=== PATIENT | male | born 1985 | race Caucasian/White ===

== ENCOUNTER 2021-09-29 00:30 | Emergency (ER) | payer BC ==
[2021-09-29] MEDS ORDERED: SODIUM CHLORIDE 0.9% 1,000 ML IV STA (01:08)
[2021-09-29] MEDS ORDERED: ONDANSETRON 4 MG/2 ML VIAL IVP STA (01:09)
--- NOTE | 2021-09-29 01:19 | ED ---
Abdominal Pain HPI - General Chief Complaint: Abdominal Pain Stated Complaint: Lower Back Pain, Kidney History Time Seen by Provider: 09/29/21 01:08 Source: patient, RN notes reviewed Mode of arrival: ambulatory Limitations: no limitations - History of Present Illness Initial Comments: This is a pleasant 36-year-old male who presents emergent back complaining of low back pain and flank pain was gone out for about 3 or 4 days. Patient states he has had vomiting and diarrhea as well. Patient states that about 4 years ago he had a bout of kidney failure and states that the symptoms feel similar. Patient has no other significant past medical history. He is a daily cigarette smoker. He also drinks about 6 beers per night. Denies any other illicit drug abuse. Patient has had several episodes of vomiting. Possible minimal hematemesis. States he noticed a few reddish/pink flecks in the vomit. Also had watery diarrhea which is actually resolving. Overt abdominal pain. No chest pain. No cough. No numbness or tingling. No vision or hearing disturbance. No headache. No skin rashes or lesions. No penile discharge. No testicular pain. No injuries. No sore throat or earache. No difficulty swallowing. Patient denies taking a prescription or [id number] medications. MD Complaint: abdominal pain, flank pain - Related Data Allergies Allergy/AdvReac Type Severity Reaction Status Date / Time No Known Allergies Allergy Verified 09/29/21 01:18 Review of Systems ROS Statement: Those systems with pertinent positive or pertinent negative responses have been documented in the HPI. ROS Other: All systems not noted in ROS Statement are negative. Past Medical History Additional Past Medical History / Comment(s): Kidney injury History of Any Multi-Drug Resistant Organisms: None Reported Past Surgical History: No Surgical Hx Reported Past Psychological History: No Psychological Hx Reported Smoking Status: Current every day smoker Past Alcohol Use History: Daily General Exam Limitations: no limitations General appearance: alert, in no apparent distress Head exam: Present: atraumatic, normocephalic, normal inspection Eye exam: Present: normal appearance, PERRL, EOMI. Absent: scleral icterus, conjunctival injection, periorbital swelling ENT exam: Present: normal exam, normal oropharynx, mucous membranes dry, mucous membranes moist, TM's normal bilaterally, normal external ear exam Neck exam: Present: normal inspection, full ROM. Absent: tenderness, meningismus, lymphadenopathy Respiratory exam: Present: normal lung sounds bilaterally. Absent: respiratory distress, wheezes, rales, rhonchi, stridor, chest wall tenderness, accessory muscle use Cardiovascular Exam: Present: regular rate, normal rhythm, normal heart sounds. Absent: systolic murmur, diastolic murmur, rubs, gallop, clicks GI/Abdominal exam: Present: soft, normal bowel sounds. Absent: distended, ten derness, guarding, rebound, rigid Speculum exam: Present: vaginal bleeding, other (Chaperoned vaginal bleeding reveals a closed cervix with active bleeding. No clots. No tissue, no cervicitis). Absent: vaginal discharge, foreign body, tissue, laceration Extremities exam: Present: normal inspection, full ROM, normal capillary refill. Absent: tenderness, pedal edema, joint swelling, calf tenderness Back exam: Present: normal inspection, CVA tenderness (R), CVA tenderness (L). Absent: full ROM, tenderness, muscle spasm, paraspinal tenderness, vertebral tenderness Neurological exam: Present: alert, oriented X3, CN II-XII intact Psychiatric exam: Present: normal affect, normal mood Skin exam: Present: warm, dry, intact, normal color. Absent: rash Course Vital Signs 09/29/21 00:43 Pulse Rate 64 Respiratory 16 Rate Blood Pressure 135/87 O2 Sat by Pulse 98 Oximetry - Reevaluation(s) Reevaluation #1: 09/29/21 02:54 Medical record is reviewed Symptoms are improved here in the emergency department Patient is informed of results and questions answered Patient in no distress Medical Decision Making - Medical Decision Making His workup here is essentially negative. Computed tomography scan showed no acute findings. Patient's laboratory investigations were essentially normal. Urine was clear. Suspect the patient has viral gastroenteritis. I did order COVID-19 testing and influenza testing which is pending. However the patient is in no distress. Is not vomiting. Able to hold down fluids. We will have him call back for results. Conservative therapy and clear liquid diet otherwise. Started pampers Zofran given. I did give the patient information for establishing care with a primary care physician. Patient was told to return to the ER for any signs or symptoms worsen. Told to return immediately if any other problems arise. All questions answered. Treatment plan discussed. Patient in agreement Every effort has been made to ensure accuracy of this dictation. However, due to the limitations of electronic medical records and dictation devices, errors in charting still occur. 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 - Lab Data Result diagrams: 09/29/21 01:30 09/29/21 01:30 Lab Results 09/29/21 09/29/21 09/29/21 Range/Units 01:19 01:30 01:30 WBC 9.8 (3.8-10.6) k/uL RBC 4.92 (4.30-5.90) m/uL Hgb 16.0 (13.0-17.5) gm/dL Hct 47.9 (39.0-53.0) % MCV 97.3 (80.0-100.0) fL MCH 32.5 (25.0-35.0) pg MCHC 33.4 (31.0-37.0) g/dL RDW 12.1 (11.5-15.5) % Plt Count 211 (150-450) k/uL MPV 7.1 Neutrophils % 67 % Lymphocytes % 25 % Monocytes % 4 % Eosinophils % 2 % Basophils % 1 % Neutrophils # 6.5 (1.3-7.7) k/uL Lymphocytes # 2.4 (1.0-4.8) k/uL Monocytes # 0.4 (0-1.0) k/uL Eosinophils # 0.2 (0-0.7) k/uL Basophils # 0.1 (0-0.2) k/uL Sodium 135 L (137-145) mmol/L Potassium 4.1 (3.5-5.1) mmol/L Chloride 101 (98-107) mmol/L Carbon Dioxide 28 (22-30) mmol/L Anion Gap 6 mmol/L BUN 13 (9-20) mg/dL Creatinine 1.03 (0.66-1.25) mg/dL Est GFR (CKD-EPI)AfAm >90 (>60 ml/min/1.73 sqM) Est GFR (CKD-EPI)NonAf >90 (>60 ml/min/1.73 sqM) Glucose 89 (74-99) mg/dL Calcium 9.0 (8.4-10.2) mg/dL Phosphorus 4.1 (2.5-4.5) mg/dL Magnesium 2.0 (1.6-2.3) mg/dL Total Bilirubin 0.5 (0.2-1.3) mg/dL AST 43 (17-59) U/L ALT 35 (4-49) U/L Alkaline Phosphatase 77 (38-126) U/L Total Protein 7.6 (6.3-8.2) g/dL Albumin 4.6 (3.5-5.0) g/dL Lipase 129 (23-300) U/L Urine Color Yellow Urine Appearance Clear (Clear) Urine pH 5.5 (5.0-8.0) Ur Specific [place] 1.019 (1.001-1.035) Urine Protein Negative (Negative) Urine Glucose (UA) Negative (Negative) Urine Ketones Negative (Negative) Urine Blood Negative (Negative) Urine Nitrite Negative (Negative) Urine Bilirubin Negative (Negative) Urine Urobilinogen <2.0 (<2.0) mg/dL Ur Leukocyte Esterase Negative (Negative) Disposition Clinical Impression: Acute gastroenteritis, Low back pain Disposition: HOME SELF-CARE Condition: Good Instructions (If sedation given, give patient instructions): Gastroenteritis (ED) Additional Instructions: Clear liquid diet for 24 hours. Follow-up with your regular physician as directed. Return to the ER immediately if any symptoms worsen, new symptoms arise, or any other problems develop. Is patient prescribed a controlled substance at d/c from ED?: No Referrals: Deuce Pierson [STAFF PHYSICIAN] - As Soon As Possible Time of Disposition: 02:54
[2021-09-29 01:35] LABS: Appearance,Urine Clear (Clear); Bilirubin,Urine Negative (Negative); Blood,Urine Negative (Negative); Color,Urine Yellow; Glucose,Urine (UA) Negative (Negative); Ketones,Urine Negative (Negative); Leukocyte Esterase,Urine Negative (Negative); Nitrite,Urine Negative (Negative); PH, Urine 5.5 (5.0-8.0); Protein,Urine Negative (Negative); Specific Gravity,Urine 1.019 (1.001-1.035); Urobilinogen,Urine <2.0 mg/dL (<2.0)
[2021-09-29 01:41] LABS: Basophils # (A) 0.1 k/uL (0-0.2); Basophils % (A) 1 %; Eosinophils # (A) 0.2 k/uL (0-0.7); Eosinophils % (A) 2 %; HCT 47.9 % (39.0-53.0); Lymphocytes # (A) 2.4 k/uL (1.0-4.8); Lymphocytes % (A) 25 %; MCH 32.5 pg (25.0-35.0); MCHC 33.4 g/dL (31.0-37.0); MCV 97.3 fL (80.0-100.0); Mean Platelet Volume 7.1; Monocytes # (A) 0.4 k/uL (0-1.0); Monocytes % (A) 4 %; Neutrophils # (A) 6.5 k/uL (1.3-7.7); Neutrophils % (A) 67 %; Platelet Count 211 k/uL (150-450); RBC 4.92 m/uL (4.30-5.90); RDW 12.1 % (11.5-15.5); WBC 9.8 k/uL (3.8-10.6)
--- NOTE | 2021-09-29 02:02 | CT ---
EXAMINATION TYPE: CT abdomen pelvis wo con DATE OF EXAM: 09/29/2021 COMPARISON: None HISTORY: pain CT DLP: 386.5 mGycm Automated exposure control for dose reduction was used. Images obtained from the diaphragm to the floor the pelvis with no contrast. The lung bases are clear. No pleural effusion. Heart size is normal. There is no pericardial effusion . Liver spleen and stomach pancreas gallbladder appear intact. The bile ducts are not dilated. There is no adrenal mass. Kidneys of normal size and contour. No hydronephrosis. Ureters are not dila tracie. There is no retroperitoneal adenopathy. Appendix is posterior and superior and appears normal. T he bladder distends smoothly. No inguinal hernia. No free fluid in the pelvis. No pelvic mass. There is no mesenteric edema. No ascites or free air. No bowel obstruction. The lumbar vertebrae have normal spacing and alignment. Posterior elements are intact. Bony pelvis is intact. The hip joints are intact. There is a small posterior disc bulge at L5-S1. No spinal stenosi s. IMPRESSION: Negative CT scan abdomen and pelvis. Normal appendix. Negative lumbar spine.
[2021-09-29 02:16] LABS: ALT 35 U/L (4-49); AST 43 U/L (17-59); African American GFR (CKD) >90 (>60 ml/min/1.73 sqM); Albumin 4.6 g/dL (3.5-5.0); Alkaline Phosphatase 77 U/L (38-126); Anion Gap 6 mmol/L; Blood Urea Nitrogen 13 mg/dL (9-20); Carbon Dioxide 28 mmol/L (22-30); Chloride 101 mmol/L (98-107); Glucose 89 mg/dL (74-99); Lipase 129 U/L (23-300); Non-African American GFR(CKD) >90 (>60 ml/min/1.73 sqM); Phosphorus 4.1 mg/dL (2.5-4.5); Potassium 4.1 mmol/L (3.5-5.1); Sodium 135 mmol/L (137-145); Total Bilirubin 0.5 mg/dL (0.2-1.3); Total Protein 7.6 g/dL (6.3-8.2)
[2021-09-29] MEDS ORDERED: ONDANSETRON 4 MG ODT STARTER PACK 2 TAB BTL PO STA (02:53)
[2021-09-29 02:58] VITALS: TEMP 97.9
[2021-09-29 03:19] VITALS: BP 130/88; PULSE 60; RESP 18
== END 2021-09-29 03:18 | disposition home or self-care (01) ==
LOC: EC 00:30
DX: K52.9 Noninfective gastroenteritis and colitis, unspecified (principal); M54.50 Low back pain, unspecified; F17.200 Nicotine dependence, unspecified, uncomplicated
CPT/HCPCS: 36415; 80053; 83690; 83735; 84100; 85025; 81003; 87502; 87635; 74176; 99284; 96374; 96361; J2405; S0119